=== PATIENT | male | born 1990 | race Two or more races ===

== ENCOUNTER 2017-12-12 09:46 | Emergency (ER) | payer SELFPAY ==
[~2017-12-12] VITALS: Ht 172.7 cm; Wt 81.6 kg
[2017-12-12 10:14] VITALS: BP 125/62
[2017-12-12] MEDS ORDERED: KETOROLAC TROMETH 60MG/2ML VIAL IM ONE (10:45)
== END 2017-12-12 11:06 | disposition home or self-care (01) ==
LOC: ER 09:46
DX: K64.4 Residual hemorrhoidal skin tags (principal)
CPT/HCPCS: 96372; 99283; J1885

== ENCOUNTER 2019-06-07 07:21 | Emergency (ER) | payer MEDICAID ==
[~2019-06-07] VITALS: Ht 167.6 cm; Wt 61.2 kg
[2019-06-07 07:43] VITALS: BP 112/49
[2019-06-07] MEDS ORDERED: TETRACAINE HCL 0.5% OPTH(EYE) SOLN 4ML EACHEYE ONE (08:15)
[2019-06-07] MEDS ORDERED: FLUORESCEIN SOD 1 MG TEST STRIP OP ONE (08:30)
== END 2019-06-07 08:58 | disposition home or self-care (01) ==
LOC: ER 07:21
DX: T15.01XA Foreign body in cornea, right eye, initial encounter (principal); F12.10 Cannabis abuse, uncomplicated; X58.XXXA Exposure to other specified factors, initial encounter; Y93.89 Activity, other specified; Y99.8 Other external cause status; Y92.89 Other specified places as the place of occurrence of the external cause
CPT/HCPCS: 65220

== ENCOUNTER 2021-05-25 20:42 | Emergency (ER) | payer MEDICAID ==
[~2021-05-25] VITALS: Ht 160 cm; Wt 95.3 kg
[2021-05-26 02:38] VITALS: BP 116/61
[2021-05-26] MEDS ORDERED: IBUPROFEN 800 MG TAB PO ONE (03:15)
[2021-05-26] MEDS ORDERED: ACETAMINOPHEN 500 MG TAB PO ONE (03:15)
== END 2021-05-26 04:11 | disposition home or self-care (01) ==
LOC: ER 20:43
DX: S93.401A Sprain of unspecified ligament of right ankle, initial encounter (principal); S53.401A Unspecified sprain of right elbow, initial encounter; S63.501A Unspecified sprain of right wrist, initial encounter; E66.9 Obesity, unspecified; Z68.37 Body mass index [BMI] 37.0-37.9, adult; V87.8XXA Person injured in other specified noncollision transport accidents involving motor vehicle (traffic), initial encounter; Y93.89 Activity, other specified; Y92.89 Other specified places as the place of occurrence of the external cause; Y99.8 Other external cause status
CPT/HCPCS: 73080; 73110; 73610